=== PATIENT | female | born 1960 | race Caucasian/White ===

== ENCOUNTER → 2017-03-28 | Outpatient (CLI) | payer BC ==
[2017-03-28 10:20] LABS: CREATININE 0.7 mg/dL (0.5-1.5)
== END ==
LOC: LAB 08:15
PROVIDERS: ATTEND Internal Medicine
DX: R06.00 Dyspnea, unspecified (principal)
CPT/HCPCS: 36415; 82565; 84520

== ENCOUNTER → 2017-03-29 | Outpatient (CLI) | payer BC ==
[~2017-03-29] MED LIST: ALBUTEROL SULFATE 0.083% 2.5 MG/3 ML INH IH ONE; IOPAMIDOL-370 100 ML VIAL IV ONE
== END ==
LOC: RESP 09:06
PROVIDERS: ATTEND Internal Medicine
DX: J84.10 Pulmonary fibrosis, unspecified (principal); K76.89 Other specified diseases of liver; M47.895 Other spondylosis, thoracolumbar region; E04.1 Nontoxic single thyroid nodule
CPT/HCPCS: 70492; 71270; 94060; 94727; 94729; Q9967

== ENCOUNTER → 2017-11-24 | Outpatient (CLI) | payer BC | END | disposition home or self-care (01) | LOC: RAH 09:45 | PROVIDERS: ATTEND Internal Medicine Critical Care Medicine | DX: Z12.31 Encounter for screening mammogram for malignant neoplasm of breast (principal); Z72.89 Other problems related to lifestyle | CPT/HCPCS: 77067 ==

== ENCOUNTER 2021-05-12 17:50 | Emergency (ER) | payer BC ==
[~2021-05-12] VITALS: Ht 170.2 cm; Wt 77.1 kg
[2021-05-12 18:19] LABS: BASOPHILS % (AUTO) 0.4 % (0.0-5.0); EOSINOPHILS % (AUTO) 1.1 % (0.0-8.0); LYMPHOCYTES % (AUTO) 17.7 % (21.0-51.0); MEAN CORPUSCULAR HEMOGLOBIN 27.2 pg (27.0-33.0); MEAN CORPUSCULAR HGB CONC 32.1 g/dL (32.0-36.0); MEAN CORPUSCULAR VOLUME 84.5 fL (79-99); MONOCYTES % (AUTO) 6.1 % (3.0-13.0); NEUTROPHILS % (AUTO) 74.4 % (40.0-77.0); PLATELET COUNT (AUTO) 218 K/uL (130-400); RED BLOOD CELL COUNT(AUTO) 4.97 MIL/uL (4.00-5.50); RED CELL DISTRIBUTION WIDTH 13.5 % (11.0-15.5); WHITE BLOOD COUNT (AUTO) 10.3 K/uL (4.8-10.8)
[2021-05-12 18:35] LABS: CREATININE 0.9 mg/dL (0.5-1.5); POTASSIUM 4.1 mmol/L (3.5-5.1)
[2021-05-12 18:40] LABS: ALBUMIN 3.9 g/dL (3.5-5.0); BILIRUBIN,TOTAL 0.4 mg/dL (0.2-1.0); TOTAL PROTEIN, SERUM 7.2 g/dL (6.0-8.3)
[2021-05-12 18:45] LABS: APPEARANCE,URINE Clear (CLEAR); BILIRUBIN,URINE Negative (NEGATIVE); COLOR,URINE Yellow (YELLOW); GLUCOSE, URINE (UA) Negative (NEGATIVE); KETONES,URINE Negative (NEGATIVE); LEUKOCYTE ESTERASE ,URINE Moderate (NEGATIVE); NITRATE,URINE Negative (NEGATIVE); OCCULT BLOOD,URINE Negative (NEGATIVE); PH,URINE >=9.0 (5.0-8.0); PROTEIN,URINE Negative (NEGATIVE); UROBILINOGEN,URINE 0.2 mg/dL (0.2-1.0)
[2021-05-12 18:53] LABS: BACTERIA,URINE Rare /HPF (None Seen); RBC,URINE 0-1 /HPF (0-1); SQUAMOUS EPITHELIAL CELL,UR Rare /HPF (0-2)
[2021-05-12] MEDS ORDERED: 0.9%NACL 1000ML 1,000 ML IV ONE (19:30)
[2021-05-12] MEDS ORDERED: MORPHINE 4 MG SYG IVP ONE (19:30)
[2021-05-12] MEDS ORDERED: ONDANSETRON 4MG INJ IVP ONE (19:30)
[2021-05-12] MEDS ORDERED: FAMOTIDINE 20MG VIAL IV ONE (19:30)
[2021-05-12] MEDS ORDERED: LIDOCAINE HCL 2% VISCOUS 15 ML UDCUP PO ONE (20:30)
[2021-05-12] MEDS ORDERED: PANTOPRAZOLE 40 MG/VIAL IVP ONE (20:30)
[2021-05-12] MEDS ORDERED: MAG/ALUM/SIMETH 30 ML UDCUP PO ONE (20:30)
[2021-05-12] MEDS ORDERED: ONDA4TAB10 PO (20:32)
[2021-05-12] MEDS ORDERED: FAMO-136 PO (20:32)
[2021-05-12] MEDS ORDERED: OMEP20TA20 PO (20:32)
[2021-05-12] MEDS ORDERED: DICY20TA2 PO (20:32)
[2021-05-12] MEDS ORDERED: PANTOPRAZOLE 40 MG/VIAL ONE (20:54)
[2021-05-12] MEDS ORDERED: LIDOCAINE HCL 2% VISCOUS 15 ML UDCUP ONE (20:54)
[2021-05-12] MEDS ORDERED: MAG/ALUM/SIMETH 30 ML UDCUP ONE (20:54)
[2021-05-12 20:59] VITALS: BP 126/86
== END 2021-05-12 21:06 | disposition home or self-care (01) ==
LOC: EDH 17:50
DX: K52.9 Noninfective gastroenteritis and colitis, unspecified (principal); K76.89 Other specified diseases of liver; R74.8 Abnormal levels of other serum enzymes; Z79.899 Other long term (current) drug therapy; Z98.890 Other specified postprocedural states
CPT/HCPCS: 36415; 74176; 80053; 81001; 83690; 84484; 85025; 87088; 93005; 96361; 96374; 96375; 99284; C9113; J2270; J2405; J3490; J7030